=== PATIENT | female | born 1945 | race Caucasian/White ===

== ENCOUNTER → 2017-05-13 | Outpatient (CLI) | payer MEDICARE | END | disposition home or self-care (01) | LOC: CFH 10:33 | PROVIDERS: ATTEND Physician Assistant | DX: I35.1 Nonrheumatic aortic (valve) insufficiency (principal); R53.83 Other fatigue; E55.9 Vitamin D deficiency, unspecified; E78.2 Mixed hyperlipidemia; I10 Essential (primary) hypertension; R35.0 Frequency of micturition; R79.9 Abnormal finding of blood chemistry, unspecified; Z92.21 Personal history of antineoplastic chemotherapy; Z85.72 Personal history of non-Hodgkin lymphomas | CPT/HCPCS: 93306 ==